=== PATIENT | male | born 1970 | race Caucasian/White ===

== ENCOUNTER 2025-01-31 07:52 | Emergency (ER) | payer OTHER ==
[~2025-01-31] VITALS: Ht 162.6 cm; Wt 65.9 kg
[2025-01-31 08:13] VITALS: TEMP 98.2
[2025-01-31] MEDS: LIDOCAINE 5% TRANSDERMAL PATCH TD ONE (09:00)
[2025-01-31] MEDS: IBUPROFEN 600 MG TABLET PO ONE (09:00)
[2025-01-31] MEDS ORDERED: IBUP-1492 PO (11:34)
[2025-01-31 12:07] VITALS: BP 158/88; PULSE 75; RESP 18; O2SAT 100
== END 2025-01-31 12:10 | disposition home or self-care (01) ==
LOC: EMS 08:11
DX: M25.552 Pain in left hip (principal)
CPT/HCPCS: 73503; 99283

== ENCOUNTER 2025-03-08 06:04 | Emergency (ER) | payer OTHER ==
[~2025-03-08] VITALS: Ht 162.6 cm; Wt 75.0 kg
[~2025-03-08 06:04] MED LIST: IBUP-1492 PO
[2025-03-08 06:10] VITALS: TEMP 97.3
[2025-03-08] MEDS: KETOROLAC TROMETHAMINE 60 MG/2 ML VIAL IM ONE (06:46)
[2025-03-08] MEDS ORDERED: PERCT PO (07:06)
[2025-03-08] MEDS ORDERED: CYCL-448 PO (07:07)
[2025-03-08 07:21] VITALS: BP 142/102; PULSE 62; RESP 18; O2SAT 100
== END 2025-03-08 07:23 | disposition home or self-care (01) ==
LOC: EMS 06:04
DX: M54.89 Other dorsalgia (principal); Z79.899 Other long term (current) drug therapy
CPT/HCPCS: 99283; 96372; J1885